=== PATIENT | female | born 1975 | race African-American/Black ===

== ENCOUNTER 2021-10-10 21:01 | Emergency (ER) | payer SELFPAY ==
[2021-10-10] MEDS ORDERED: Acetaminophen 500 MG TAB ONE (22:40)
[2021-10-10] MEDS ORDERED: Ibuprofen 200 MG TAB ONE (22:40)
[2021-10-10 23:29] LABS: Mean Corpuscular HGB CONC 32.2 g/dL (32.0-36.0); Mean Corpuscular Hemoglobin 25.6 pg (27.0-33.0); Mean Corpuscular Volume 79.7 fl (81.6-98.3); Mean Platelet Volume 8.2 fl (7.4-10.4); Platelet Count 265 10x3/uL (150-450); RBC Distribution Width 17.3 % (11.5-14.5); White Blood Cell (WBC) Count 5.7 10x3/uL (3.5-10.5)
[2021-10-10 23:31] LABS: MDiff Complete? YES
[2021-10-10 23:40] LABS: ALT (SGPT) 21 U/L (8-55); AST (SGOT) 27 U/L (5-34); Albumin 3.3 g/dL (3.5-5.0); Alkaline Phosphatase 59 U/L (40-110); Anion Gap 15 mmol/L (10-20); BUN (Urea Nitrogen) 8 mg/dL (7.0-18.7); Bilirubin, Total 0.3 mg/dL (0.2-1.2); Calc. Creatinine Clearance 0 mL/min (70-130); Calcium 8.6 mg/dL (7.8-10.44); Carbon Dioxide 21 mmol/L (22-29); Chloride 104 mmol/L (98-107); Estimated GFR 107; Globulin 2.6 g/dL (2.4-3.5); Glucose 125 mg/dL (70-105); Lipase 40 U/L (8-78); Magnesium 1.5 mg/dL (1.6-2.6); Potassium 3.6 mmol/L (3.5-5.1); Protein, Total 5.9 g/dL (6.0-8.3); Sodium 136 mmol/L (136-145)
[2021-10-10 23:54] LABS: Bilirubin Neg (Negative); Blood, Urine 10 (Negative); Clarity Slightly Cloudy (Clear); Glucose, Urine (Dipstick) Normal (Negative); Ketone, Urine Negative (Negative); Leukocyte Negative (Negative); Nitrite Positive (Negative); Protein, Urine (Dipstick) Negative (Neg-Trace); Urobilinogen Normal mg/dL (Less than 2)
[2021-10-10 23:58] LABS: SARS-CoV-2 NAA Rapid Test DETECTED (NotDetected)
[2021-10-11 00:02] LABS: Bacteria/HPF 4+ HPF (None Seen); RBC/HPF 0-3 HPF (0-3); Squamous Epithelial 0-3 HPF (0-3); WBC/HPF 0-3 HPF (0-3)
[2021-10-11 00:10] LABS: Band 2 % (5-11); Eosinophils 1 % (0-10); Lymphocytes 12 % (21-51); Monocytes 13 % (0-10); Neutrophil 72 % (42-75)
[2021-10-11 00:11] LABS: Anisocytosis SLIGHT = 6-15 cells (100X) (0-5/hpf); Microcytosis SLIGHT = 6-15 cells (100X) (0-5/hpf)
[2021-10-11 00:12] LABS: Hypochromia SLIGHT = 6-15 cells (100X) (0-5/hpf); Platelet Morphology Comment Appears Adequate
== END 2021-10-11 01:00 | disposition home or self-care (01) ==
LOC: CSHERS 21:01
DX: U07.1 COVID-19 (principal); N39.0 Urinary tract infection, site not specified; F17.200 Nicotine dependence, unspecified, uncomplicated
CPT/HCPCS: 71045; 80053; 81003; 81015; 83605; 83690; 83735; 85025